=== PATIENT | female | born 1965 | race African-American/Black ===

== ENCOUNTER → 2018-10-06 | Outpatient (CLI) | payer OTHER ==
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
== END | disposition home or self-care (01) ==
LOC: HKI 15:44
PROVIDERS: ATTEND Orthopaedic Surgery Adult Reconstructive Orthopaedic Surgery
DX: M17.0 Bilateral primary osteoarthritis of knee (principal); M21.062 Valgus deformity, not elsewhere classified, left knee; M21.061 Valgus deformity, not elsewhere classified, right knee; M79.604 Pain in right leg; M79.605 Pain in left leg; Z87.828 Personal history of other (healed) physical injury and trauma
CPT/HCPCS: 77073

== ENCOUNTER 2018-11-09 05:28 | Inpatient (IN) | payer OTHER ==
[2018-11-05 19:00] VITALS: BMI 31.9
[2018-11-09] VITALS (31 sets, daily range): BP systolic 82–125; BP diastolic 50–89; PULSE 79–104; RESP 16–28; Ht 175.3 cm; Wt 97.9 kg
[~2018-11-09] VITALS: Ht 175.3 cm; Wt 97.9 kg
[2018-11-09] MEDS ORDERED: DEXAMETHASONE 4 MG/ML 5 ML INJ IV ONE (05:30)
[2018-11-09] MEDS ORDERED: CEFAZOLIN 2 GM/50 ML (PMX) 50 ML IVPB ONE (05:30)
[2018-11-09] MEDS ORDERED: ONDANSETRON 4 MG INJ IV ONE (05:30)
[2018-11-09] MEDS ORDERED: TRANEXAMIC ACID 1GM/100ML(PMX) 100 ML IV ONE (05:30)
[2018-11-09] MEDS ORDERED: ACETAMINOPHEN 1000MG/100ML IV 100 ML IVPB ONE (05:30)
[2018-11-09] MEDS ORDERED: LACTATED RINGER'S 1,000 ML (ENTER RATE) IV ONE (05:30)
[2018-11-09] MEDS ORDERED: LANSOPRAZOLE 30 MG CAP PO ONE (05:30)
[2018-11-09] MEDS ORDERED: GABAPENTIN 300 MG CAP PO ONE (05:30)
[2018-11-09] MEDS ORDERED: TRANEXAMIC ACID 1GM/100ML(PMX) 100 ML IVPB ONE (05:30)
[2018-11-09] MEDS ORDERED: DEXAMETHASONE 10 MG/ML 1 ML INJ IV ONE (05:30)
[2018-11-09] MEDS: CELECOXIB 200 MG CAP PO ONE ×2 (06:50→06:51)
[2018-11-09] MEDS ORDERED: SEVOFLURANE 15 MIN ONE (07:00)
[2018-11-09] MEDS ORDERED: GABA400C14 PO (07:00)
[2018-11-09] MEDS ORDERED: METH750T93 PO (07:01)
[2018-11-09] MEDS ORDERED: MELO15TA30 PO (07:02)
[2018-11-09] MEDS ORDERED: ACET1TAB44 PO (07:02)
--- NOTE | 2018-11-09 07:11 | HPN ---
Date/Time of Note Date/Time of Note DATE: 11/09/18 TIME: 07:11 Interval H&P Admission Note Pt. seen H&P reviewed: No system changes Patient denies fever, chills, shortness of breath, chest pain, nausea/vomiting, constipation, diarrhea, numbness, and tingling. MUSCULOSKELETAL: Right lower extremity Skin intact Sensation intact to light touch in a sural, saphenous, deep peroneal, superficial peroneal, medial and lateral plantar nerve distribution. Motor is intact, patient able to dorsiflex and plantarflex ankle and extend and flex great toe. Dorsalis Pedis pulse +2, Brisk capillary refill. Compartments are soft. Calves non-tender to palpation bilaterally. AMBROSIO FREDERICK MD November 09, 2018 07:11
[2018-11-09] MEDS ORDERED: TRANEXAMIC ACID 1GM/100ML(PMX) 200 ML ONE (07:20)
--- NOTE | 2018-11-09 07:24 | PREAC ---
Date/Time of Note Date/Time of Note DATE: 11/09/18 TIME: 07:23 Anesthesia Eval and Record Evaluation Time Pre-Procedure Interview DATE: 11/09/18 TIME: 07:23 Age 53 Sex female NPO: 8 hrs Preoperative diagnosis Right Knee OA Planned procedure Right Total Knee Arthroplasty Past Medical History Past Medical History: Includes Musculoskeletal: Osteoarthritis Surgery & Anesthesia Issues No known issue Meds Anticoagulation: No Beta Mindi within 24 hr: No Reason Beta Mindi not given: Pt. not on B-Mindi Reported Medications Meloxicam* (Mobic*) 15 Mg Tablet, 15 MG PO DAILY, #30 TAB 11/09/18 Acetaminophen with Codeine (Acetaminophen-Cod #4 Tablet) 1 Each Tablet, 1 EACH PO BID PRN for PAIN, TAB 11/09/18 Methocarbamol* (Robaxin*) 750 Mg Tablet, 750 MG PO BID PRN for MUSCLE SPASMS, TAB 11/09/18 Gabapentin* (Gabapentin*) 400 Mg Capsule, 400 MG PO TID, #90 CAP 11/09/18 Current Medications Lactated Ringer's 1,000 ml @ 125 mls/hr Q8H ONCE IV Last administered on 11/09/18at 06:52; Admin Dose 125 MLS/HR; Start 11/09/18 at 05:30; Stop 11/09/18 at 13:29 Ropivacaine/ Clonidine HCl/ Epinephrine/ Ketorolac Tromethamine/ Sodium Chloride INTRA-OP INJ ; Start 11/09/18 at 05:30; Stop 11/09/18 at 16:00 Meds reviewed: Yes Allergies Coded Allergies: celecoxib (Verified Allergy, Unknown, ITCHY, 11/09/18) Allergies Reviewed: Yes Labs/Studies Labs Reviewed: Reviewed by anesthesiologist test: Negative Studies: ECG (n/a), CXR (n/a) Pre-procedure Exam Last vitals Vital Signs Date Temp Pulse Resp B/P (MAP) Pulse Ox O2 O2 Flow FiO2 Time Delivery Rate 11/09/18 98.6 07:00 11/09/18 85 18 110/66 96 Room Air 06:20 (81) Airway: Adequate mouth opening, Adequate thyromental dist Mallampati: Mallampati II Teeth: Normal Lung: Normal Heart: Normal ASA Physical Status ASA physical status: 2 Emergency: None Planned Anesthetic General/MAC: ETT, LMA Neuraxial: Spinal Nerve block: Femoral (right) Planned Pain Management Sub-arachniod narcotics, Single shot nerve block, Parenteral pain med Pre-operative Attestations Prior to commencing anesthesia and surgery, the patient was re-evaluated, there was verification of: *The patient's identity *The results of appropriate recent lab work and preoperative vital signs *The above evaluation not changing prior to induction *Anesthetic plan, risk benefits, alternative and complications discussed with patient/family; questions answered; patient/family understands, accepts and wishes to proceed. CIARA SO MD November 09, 2018 07:24
[2018-11-09] MEDS ORDERED: PROPOFOL 20 ML ONE (07:28)
[2018-11-09] MEDS ORDERED: morphine SULFATE/PF (10 MG/10 ML) INJ ONE (07:28)
[2018-11-09] MEDS ORDERED: MIDAZOLAM 1 MG/ML 2 ML INJ ONE (07:28)
[2018-11-09] MEDS ORDERED: DEXAMETHASONE 4 MG/ML 5 ML INJ ONE (08:02)
[2018-11-09] MEDS ORDERED: PHENYLephrine (100 MCG/ML) 10ML SYG ONE (08:02)
[2018-11-09] MEDS ORDERED: KETOROLAC 30 MG INJ ONE (08:02)
[2018-11-09] MEDS ORDERED: ONDANSETRON 4 MG INJ ONE (08:02)
[2018-11-09] MEDS ORDERED: HETASTARCH 6% NACL 500 ML ONE (08:02)
[2018-11-09] MEDS ORDERED: METOCLOPRAMIDE 10 MG INJ ONE (08:02)
[2018-11-09] MEDS ORDERED: ROPIVACAINE 0.5 % 30 ML VIAL ONE (09:35)
[2018-11-09] MEDS ORDERED: HYDROmorphONE 1 MG/5 ML IV SYRINGE IV PRN ×2 (10:30)
[2018-11-09] MEDS ORDERED: ONDANSETRON 4 MG INJ IV PRN (10:30)
[2018-11-09] MEDS ORDERED: ALBUMIN HUMAN 5% 250 ML IV PRN (10:30)
[2018-11-09] MEDS ORDERED: NALOXONE (0.4 MG/ML) INJ IV PRN ×2 (10:30→12:00)
[2018-11-09] MEDS ORDERED: HYDROmorphONE 0.5 MG/0.5 ML SYG IV PRN ×2 (10:30)
[2018-11-09] MEDS ORDERED: LABETALOL HCL 20MG INJ IV PRN (10:30)
[2018-11-09] MEDS ORDERED: MEPERIDINE 25 MG INJ IV PRN (10:30)
[2018-11-09] MEDS ORDERED: morphine 2 MG INJ IV PRN ×2 (10:30)
[2018-11-09] MEDS ORDERED: DIPHENHYDRAMINE 50 MG INJ IV PRN ×3 (10:30→12:00)
[2018-11-09] MEDS ORDERED: OXYCODONE/ACETAMINOPHEN (5/325) TAB PO PRN ×2 (10:30)
[2018-11-09] MEDS ORDERED: NALBUPHINE HCL (10 MG/1 ML) INJ IV PRN (10:30)
[2018-11-09] MEDS ORDERED: HYDROCODONE/APAP (5/325) TAB PO PRN (10:30)
[2018-11-09] MEDS ORDERED: EPHEDrine 25 MG/5 ML SYG IV PRN (10:30)
[2018-11-09] MEDS ORDERED: FENTAnyl 50 MCG/ML VIAL IV PRN ×2 (10:30)
[2018-11-09] MEDS ORDERED: ACETAMINOPHEN 500 MG TAB PO PRN (10:30)
[2018-11-09] MEDS ORDERED: CEFAZOLIN 1 GM INJ ONE (10:35)
--- NOTE | 2018-11-09 11:52 | PAC ---
Date/Time of Note Date/Time of Note DATE: 11/09/18 TIME: 11:51 Post-Anesthesia Notes Post-Anesthesia Note Last documented vital signs Vital Signs Date Temp Pulse Resp B/P (MAP) Pulse Ox O2 O2 Flow FiO2 Time Delivery Rate 11/09/18 98.6 07:00 11/09/18 98.8 85 18 110/66 96 Room Air 11:50 (81) Activity: WNL Respiratory function: WNL Cardiovascular function: WNL Mental status: Baseline Pain reasonably controlled: Yes Hydration appropriate: Yes Nausea/Vomiting absent: Yes CIARA SO MD November 09, 2018 11:52
[2018-11-09] MEDS ORDERED: MAGNESIUM HYDROXIDE 30ML CUP PO PRN (12:00)
[2018-11-09] MEDS ORDERED: NACL 0.9% 3 ML SYG IV SCH (12:00)
[2018-11-09] MEDS ORDERED: DOCUSATE SODIUM 100 MG CAP PO ONE (12:00)
[2018-11-09] MEDS ORDERED: NA PHOSPHATE/BIPHOS 133 ML ENEMA PR PRN (12:00)
[2018-11-09] MEDS ORDERED: oxyCODONE 5 MG TAB PO PRN ×2 (12:00)
[2018-11-09] MEDS ORDERED: BETHANECHOL 25 MG TAB PO PRN (12:00)
[2018-11-09] MEDS ORDERED: SENNA/DOCUSATE NA (8.6MG/50MG) TAB PO PRN (12:00)
[2018-11-09] MEDS ORDERED: BISACODYL 10 MG SUPP PR PRN (12:00)
[2018-11-09] MEDS: LACTATED RINGER'S 1,000 ML IV SCH ×2 (12:58→18:56)
[2018-11-09] MEDS: CEFAZOLIN 2 GM/50 ML (PMX) 50 ML IVPB SCH ×2 (13:13→23:13)
[2018-11-09] MEDS: ACETAMINOPHEN 500 MG TAB PO SCH ×2 (14:00→22:00)
--- NOTE | 2018-11-09 16:07 | OPR ---
Date/Time of Note Date/Time of Note DATE: 11/09/18 TIME: 15:48 Operative Report Procedure Date: November 09, 2018 Preoperative Diagnosis Severe end-stage osteoarthritis of the right knee Postoperative Diagnosis Same as preop Operation/Procedure Performed Right total knee arthroplasty Use of intraoperative navigation Surgeon see signature line Rn Document Improvement Specialist Louie John Anesthesia Type: general, spinal Tourniquet Time: 120 minutes Estimated Blood Loss: 50 - 100 ml's Transfusion none Specimen Bone Grafts/Implants Depuy Sigma Femur: size 4 PS Tibia: Size 3 mobile bearing tibia Tibial sleeve: 37 mm partially porous-coated tibial stem: 16 x 7 5 mm Poly insert: Mobile-bearing size 4 PS, 17.5 mm thickness Patella: 35 mm Tubes/Drains None Complications none Pt Condition Post Procedure: stable Disposition: PACU Procedure Description PREOP DIAGNOSIS: Right knee osteoarthritis with instability POSTOP DIAGNOSIS: Same. SURGICAL PROCEDURE: Right total knee arthroplasty. Use of intraoperative navigation CPT CODE: 28056. INDICATIONS AND CONSENT: The patient is a 53 year-old woman, with an orthopaedic history consistent with progressively worsening knee pain. They have maximized nonoperative measures, which have included activity modification, medicines, intra-articular injections. On physical exam, they have varus alignment, no previous open surgical scars. They have ROM 2080, gross ligamentous instability. No significant venous stasis or edema. Distally neurovascular intact. On preoperative imaging she had end-stage osteoarthritis with complete loss of joint space in the medial compartment. There is also significant and severe posterior medial tibial plateau where and erosions. There was significant posterior tibial slope. They were offered a knee replacement. A lengthy discussion ensued, where the patient was told that if and when the symptoms are intolerable, elective total knee replacement should be considered. The operative procedure was explained using diagrams and or three-dimensional models. The rehabilitation, the potential risks, benefits and alternatives were discussed at length. Specific risks discussed included but were not limited to excessive blood loss and the need for transfusion and therefore the risk of transmissible disease or transfusion reaction, deep infection and the potential need for repetitive debridements, implant removal, long-term antibiotic therapy, possibly requiring deep venous access, extensor mechanism complications, including subluxation or dislocation, disruption of the quadriceps or patellar tendon, fracture of the patella or avulsion of the tibial tuberosity, femoral, tibial or fibular fracture and the need for further surgery for fixation, neurovascular injury with temporary or permanent numbness, tingling, weakness or paralysis, arterial injury requiring surgery including possible amputation, deep venous thrombosis, pulmonary embolism and , persistent pain, weakness, or limp, late aseptic loosening and the need for revision, polyethylene wear- induced osteolysis and related problems, post-operative stiffness requiring closed manipulation, and finally, a wide variety of unanticipated medical problems. The opportunity to ask questions and address any concerns was provided. The patient elected to proceed with TKA. FINDINGS: Complete loss of cartilage in all 3 compartments. The lateral structures were ligamentously lax. Medial structures were very tight. Numerous large osteophytes throughout the joint including posterior capsule. Relatively good bone. SURGERY IN DETAIL: Patient was taken into the Operating Room, placed supine on the operating table. Preoperatively, they were given weight-based dosing of Ancef and if MRSA positive vancomycin was given in addition. Tourniquet was placed to the right proximal thigh. Regional anesthesia was administered by Anesthesia Department. Right lower extremity was prepped and draped in sterile fashion. Surgical pause was performed, correctly identifying the patient's name, medical record number, diagnoses, surgical procedure, and laterality of procedure. The leg was elevated, exsanguinated with an Esmarch, tourniquet was inflated to 250 mmHg, remained inflated for 80 then 40 minutes, after which it was deflated. An anterior midline incision approximately 15-20 cm in length was made, centered over the patella ending just medial to the tibial tubercle. Skin and subcutaneous tissue sharply dissected down the Marilu's fascia superiorly, which was incised in line with skin incision. The quadriceps tendon, medial patellar retinaculum, patellar tendon were visualized. A medial parapatellar arthrotomy was performed. The proximal medial tibia was subperiosteally exposed for a distance of 4 cm from joint line. The deep infrapatellar bursa was incised. The patella was everted and the knee was flexed, while protecting the insertion of patellar tendon. A 3/8-inch curved osteotome was used to enter the semimembranosus bursa at the level of the joint line medially. Medial meniscus was excised at the meniscal- synovial junction. The anterior cruciate ligament was excised. The posterior cruciate ligament was excised with electrocautery from the intercondylar region and a posterior retractor was placed, subluxating the tibia anterolateral to the femur. A hernia was made anterolateral to the lateral meniscus and a right- angle retractor was placed over the anterolateral tibia. A lateral meniscectomy was performed. The inferior lateral geniculate artery was coagulated. The tibia was reduced under the femur. An intramedullary pin was placed for the OrthAlign device. The OrthAlign navigation unit and sensor were calibrated at the back table. The OrthAlign femoral cutting jig was then placed over the central pin, and secured with a m edial and lateral pin. The OrthAlign navigation unit and OrthAlign sensor were then attached to the jig. The leg was maneuvered for appropriate capture and calibration. After this was performed, the navigation unit was adjusted for a 0 varus/valgus (neutral mechanical axis) and 2.0-2.5 degree posterior flexion cut. The cutting jig was locked in place. The navigation and sensor unit were then removed. The distal femoral cut was set at 11 mm for the osteotomy . This was then secured with two pins. A distal femoral osteotomy was performed. The OrthAlign femoral jig was then removed. A posterior retractor was placed and an anterolateral retractor was placed on the tibia, subluxating the tibia anterior to the femur. The OrthAlign tibial cutting jig was then applied to the tibia preliminarily with the strap. This was secured with two pins centered over the medial 1/3 of the tibial tubercle. The offset was established proximally at the ACL footprint. This was then matched distally. There was severe erosion and bone loss over the posterior medial tibial plateau. The severity of the tibial slope and bone loss was suspicious for previous posterior medial tibial plateau fracture that was now healed. Registration was then performed, registering the lateral malleolus and the medial malleolus. After this was performed, the malleolar probe was then utilized to help set the appropriate varus/valgus as well as tibial slope. This was then locked into position. The navigation guide and sensor were then r emoved. The slotted tibial cutting jig was then applied and secured with two pins. A proximal tibia osteotomy was performed. The tibia was then brought to full extension and a 8 mm spacer block was inserted, the gap was very imbalanced and was too tight medially and very loose laterally. Further releases were done medially along the posterior medial tibia as well as the posterior capsule at 12.5 mm poly-was placed and it was still tight medially and loose laterally. The knee was flexed again and the tibial alignment guide was then removed. With the knee flexed to 90 degrees a femoral sizing jig was placed on the distal femur and secured, the femur sized to a size 4. Due to preoperative varus deformity, this was then set on 3 the degrees of empiric external rotation, using the posterior condyles. Flexion gap was extremely tight therefore the block was raised 1 pinhole to open up the flexion gap. This was parallel to the epicondylar axis. A size 4 4-in-1 femoral cutting block was then secured to the femur with two lock pins and an anterior, posterior condylar cut were performed, followed by an anterior chamfer and a posterior chamfer cut. Cutting block was removed. A 12.5 mm spacer was then inserted at 90 degrees of flexion and this was symmetric with the extension gap. An intercondylar box osteotomy was performed using the box cutting guide. At this time was decided to prepare for a mobile-bearing tibia in order to place sleeve and and stem and possible conversion to a TC3. The tibia was prepped with a intramedullary drill followed by reamers. Narrow reamers were placed down to obtain intramedullary alignment. The proximal tibia using this intramedullary alignment was then milled and broached with sleeves up to a size 37 mm sleeve at this size there is good fixation. Continued to ream up in size for 75 mm long stem. Appropriate size stem was 16 x 75 mm. The trial sleeve was then placed with the size 3 trial baseplate. The punch was then performed. The knee was then trialed. Patient had full range of motion however was unstable in flexion and had on equal extension gap in the coronal plane. Therefore further medial release was done. A trial 17.5 mm poly-was placed. There is good stability in both extension flexion with equal and rectangular gaps. Patient was able to obtain full extension and flexion to 130 degrees. The patella was everted and the osteochondral junction was exposed. The patella measured 24 mm in thickness. A patellar osteotomy performed leaving 14.5 mm remnant patella. Three lug holes were drilled for the 35 mm diameter patellar button. The knee then underwent range of motion, soft tissue tension and patellar tracking, everything was symmetric balanced. The patella tracked centrally. Posterior medial tibia was then drilled to increase cement interdigitation. Exposed bony surfaces were thoroughly irrigated and dried. Periarticular injection administered. Cement with antibiotics was mixed at the back table. At the appropriate time and consistency cement was placed onto the tibial plateau careful to not allow cement to enter the intramedullary canal secondary to the planned ports fixation of the sleeve. Cement was finger pressurized. Cement was placed on the backside of the tibial component The tibial component with a size 37 mm sleeve and stem 16 x 75 mm was placed by hand into the keel and was then impacted and extruded cement removed. Cement was applied to exposed bone of the femur, as well as the posterior condylar portion prostheses, and the femoral component was inserted, extruded cement was then removed. The knee was brought to full extension. Cement was applied to the patella, as well as the patellar button, which was clamped into position. Extruded cement was removed. After the cement completely dried, the knee was flexed, the trial polyethylene was removed. Scored cement was removed. A tourniquet was deflated. Hemostasis was obtained. Pulse lavage was used to irrigate and remove any loose debris from posterior knee. A formal size 4, 17.5 mm polyethylene was inserted, confirmed seated and locked. The knee was reduced, hemostasis obtained. Copious amounts of irrigation was used with pulse lavage to remove and loose debris. The arthrotomy was closed with 1 PDS in a [id number], interrupted fashion, subcutaneous tissues irrigated, closed with 2-0 Vicryl in an inverted, interrupted fashion. The skin was closed with verenice. A sterile dressing was applied. Sponge, needle and instrument counts were correct at the end of the case. DISPOSITION: Patient transferred to PACU in stable condition. The patient will be weight bearing as tolerated on the operative extremity. PT will begin POD #0 if available. Postoperative AP and lateral of the operative knee will be ordered in PACU. Bilateral knee high SCDs will be worn while admitted. ASA 81mg BID will be given for DVT prophylaxis for 6 weeks. Pain will be controlled with me dication. The patient will follow up in clinic in approximately 2 weeks. ESTIMATED BLOOD LOSS: 50 mL. CULTURES: None. PATHOLOGY: Bone. IMPLANTS: redealize Femur: size 4 PS Tibia: Size 3 mobile bearing tibia Tibial sleeve: 37 mm partially porous-coated tibial stem: 16 x 7 5 mm Poly insert: Mobile-bearing size 4 PS, 17.5 mm thickness Patella: 35 mm YOLY,AMBROSIO MD November 09, 2018 16:04
--- NOTE | 2018-11-09 17:02 | QN ---
Documentation Comment consult note dictated. Thanks for the Consult. We will follow with you. ERIN ESTRADA November 09, 2018 17:02
[2018-11-09] MEDS: ONDANSETRON 4 MG INJ IV PRN ×2 (18:53→20:46)
[2018-11-09] MEDS: GABAPENTIN 300 MG CAP PO SCH (20:46)
[2018-11-09] MEDS: DOCUSATE SODIUM 100 MG CAP PO SCH (20:46)
--- NOTE | 2018-11-09 20:59 | CONS ---
DATE OF ADMISSION: 11/09/2018 DATE OF CONSULTATION: 11/09/2018 INDICATION FOR CONSULTATION: Medical management. HISTORY OF PRESENTING COMPLAINT: This is a 53-year-old -[place] female with the history of s evere end-stage osteoarthritis of the right knee that was admitted for an elective right total knee a rthroplasty. The procedure supposedly went well and the patient is currently being monitored in the medical/surgical floor and was unable to participate with physical therapy earlier due to some dizzin ess, but otherwise is doing well. She has minimal pain at the operative site, but is comfortable jus t sitting down, discussing with her family members at the bedside. She was in her normal state of he alth prior to the surgery. She is able to give me a detailed surgical and medical history. She tell s me she used to be on antihypertensives a long time ago, but for about a year now, she has not taken oral antihypertensives and has no need that. She has no other medical history other than the severe osteoarthritis of her knee. PAST MEDICAL HISTORY: Essentially summarized above. REVIEW OF SYSTEMS: Essentially a 12-point review of system was done and was negative. PAST SURGICAL HISTORY: She has had surgery to her abdomen. She has a total hysterectomy as well as surgery to her right upper extremity. ALLERGIES: SHE REPORTS ALLERGY TO CELECOXIB. SOCIAL HISTORY: She smokes marijuana daily, drinks a cup of coffee daily but denies alcohol or illic it drug use. FAMILY HISTORY: Noncontributory. HOME MEDICATIONS: Reviewed and reconciled. PHYSICAL EXAMINATION: VITAL SIGNS: Temperature 97.9, pulse 89, respirations 18, blood pressure 100/57, saturations 97% on oxygen via nasal cannula at 2 L a minute. GENERAL: She is alert. She is oriented, no distress at this time. HEENT: Head is normocephalic without evidence of trauma. Pupils equal, round, and reactive. Mucous membranes are moist. Posterior pharynx is clear of erythema and exudate. NECK: Supple and nontender. CHEST: Clear to auscultation. CARDIOVASCULAR: S1 and S2 without added sounds or murmurs. ABDOMEN: Soft, nontender, nondistended. EXTREMITIES: The patient has a bandage and splinting all the way from above her right knee all the w ay to her foot, but is able to wiggle her toes. Left lower extremity is unremarkable. SKIN: Otherwise, devoid of rash or jaundice. PSYCHIATRIC: She was calm, cooperative with exam. LABORATORY VALUES: No new labs and imaging to report. ASSESSMENT: A 53-year-old female for whom we were consulted for medical management after she has und ergone a right total knee arthroplasty for severe degenerative right osteoarthritis. 1. Prior history of hypertension, the patient -- blood pressure control of antihypertensives. Iram nue to monitor. 2. Remote use of substance abuse. The patient does smoke marijuana daily. At that time, she has be en encouraged to try not to smoke anything. She is encouraged to partake of recreational marijuana i n moderation ____ pain control and DVT prophylaxis by ortho. Further interventions will depend on he r clinical course. We will order labs for GI review. Thank you for the consult. We will follow with you. Dictated By: ERIN ESTRADA MD BA/NTS Conf#: [id number] DID#: [id number]
[2018-11-10 00:01] VITALS: BP 120/71; PULSE 88; RESP 18
[2018-11-10] MEDS: HYDROmorphONE 1 MG/ML SYG IV PRN ×7 (00:08→20:40)
[2018-11-10 03:27] VITALS: BP 109/62; PULSE 84; RESP 18
[2018-11-10] MEDS: ONDANSETRON 4 MG INJ IV PRN ×2 (03:45→09:42)
[2018-11-10] MEDS: ACETAMINOPHEN 500 MG TAB PO SCH ×3 (05:27→21:53)
[2018-11-10] MEDS: CEFAZOLIN 2 GM/50 ML (PMX) 50 ML IVPB SCH (05:28)
[2018-11-10] MEDS ORDERED: DEXAMETHASONE 10 MG/ML 1 ML INJ IV ONE (07:00)
[2018-11-10 07:53] VITALS: BP 185/85; PULSE 95; RESP 18
[2018-11-10] MEDS: ASPIRIN (EC) 81 MG TAB PO SCH ×2 (08:17→20:39)
[2018-11-10 08:20] VITALS: BP 113/75; PULSE 85
[2018-11-10] MEDS: DOCUSATE SODIUM 100 MG CAP PO SCH ×4 (08:20→21:00)
[2018-11-10] MEDS: METOCLOPRAMIDE 10 MG INJ IV SCH ×3 (10:12→20:39)
[2018-11-10] MEDS ORDERED: ONDANSETRON 4 MG INJ IV PRN (12:00)
[2018-11-10] MEDS: LACTATED RINGER'S 1,000 ML IV SCH (12:06)
[2018-11-10 14:27] VITALS: BP 122/86; PULSE 81; RESP 18
[2018-11-10 19:18] VITALS: BP 119/72; PULSE 96; RESP 20
[2018-11-10] MEDS: GABAPENTIN 300 MG CAP PO SCH (20:39)
--- NOTE | 2018-11-10 21:13 | PN ---
Date/Time of Note Date/Time of Note DATE: 11/10/18 TIME: 21:08 Assessment/Plan Lines/Catheters IV Catheter Type (from Nrsg): Saline Lock Hankins in Place (from Nrsg): Yes Assessment/Plan Chief Complaint/Hosp Course POD#1 s/p primary right TKA -Post op H&H stable -PT/OT -Joints pain control protocol. will add Toradol. -DVT prophylaxis: SCD's, ASA 81 mg twice daily x6 weeks -Weight bearing status: as tolerated -Post-op XR ordered -Abx: 24h vanc/ancef -Diet: ADAT -Hankins: DC'd today -Discharge planning consult Planned Discharge Date: 11/11/2018 Discharge to home with home health Subjective 24 Hr Interval Summary Patient doing well No acute events overnight Pain is not well controlled. Patient continues to have nausea and vomiting Exam/Review of Systems Vital Signs Vitals Vital Signs Date Temp Pulse Resp B/P (MAP) Pulse Ox O2 O2 Flow FiO2 Time Delivery Rate 11/10/18 98.4 96 20 119/72 100 Room Air 19:18 (88) 11/09/18 2.0 17:00 Intake and Output 11/09/18 11/09/18 11/10/18 1515:00 23:00 07:00 IntakeIntake Total 2200 ml 1480 ml 500 ml OutputOutput Total 550 ml 700 ml 900 ml BalanceBalance 1650 ml 780 ml -400 ml Exam Free Text/Dictation Right lower extremity: Dressing: clean, dry, and intact, no erythema Sensation intact to light touch in a sural, saphenous, deep peroneal, superficial peroneal, medial and lateral plantar nerve distribution. Motor is intact, patient able to dorsiflex and plantarflex ankle and extend and flex great toe. Dorsalis Pedis pulse +2, Brisk capillary refill. Compartments are soft. Calves non-tender to palpation bilaterally. Results Result Diagram: 11/10/18 0429 11/10/18 0429 AMBROSIO FREDERICK MD November 10, 2018 21:13
[2018-11-10] MEDS ORDERED: KETOROLAC 30 MG INJ IV ONE (21:26)
[2018-11-10] MEDS ORDERED: KETOROLAC 15 MG INJ IV PRN (21:30)
[2018-11-11 01:39] VITALS: BP 139/79; PULSE 95; RESP 20
[2018-11-11] MEDS: METOCLOPRAMIDE 10 MG INJ IV SCH ×4 (02:24→18:38)
[2018-11-11] MEDS: LACTATED RINGER'S 1,000 ML IV SCH (02:28)
--- NOTE | 2018-11-11 06:28 | PN ---
Date/Time of Note Date/Time of Note DATE: 11/11/18 TIME: 06:27 Assessment/Plan Lines/Catheters IV Catheter Type (from Nrsg): Saline Lock [place] in Place (from Nrsg): Yes Assessment/Plan Chief Complaint/Hosp Course POD#2 s/p primary right TKA . Patient continues to be nauseated however it is decreased from yesterday. Her pain is better controlled today. -Post op H&H stable -PT/OT -Joints pain control protocol. will add Toradol. -DVT prophylaxis: SCD's, ASA 81 mg twice daily x6 weeks -Weight bearing status: as tolerated -Post-op XR ordered -Abx: 24h vanc/ancef -Diet: ADAT -Hankins: DC'd today -Discharge planning consult Planned Discharge Date: 11/11/2018 Discharge to home with home health Subjective 24 Hr Interval Summary Patient doing well No acute events overnight Pain is moderately controlled. Her nausea is slightly improved but still present. Exam/Review of Systems Vital Signs Vitals Vital Signs Date Temp Pulse Resp B/P (MAP) Pulse Ox O2 O2 Flow FiO2 Time Delivery Rate 11/11/18 99.8 95 20 139/79 95 Room Air 01:39 (99) 11/09/18 2.0 17:00 Intake and Output 11/10/18 11/10/18 11/11/18 1515:00 23:00 07:00 IntakeIntake Total 1300 ml 120 ml OutputOutput Total 400 ml 600 ml BalanceBalance 1300 ml -280 ml -600 ml Exam Free Text/Dictation Right lower extremity: Dressing: clean, dry, and intact, no erythema Sensation intact to light touch in a sural, saphenous, deep peroneal, superficial peroneal, medial and lateral plantar nerve distribution. Motor is intact, patient able to dorsiflex and plantarflex ankle and extend and flex great toe. Dorsalis Pedis pulse +2, Brisk capillary refill. Compartments are soft. Calves non-tender to palpation bilaterally. Results Result Diagram: 11/11/18 0448 11/11/18 0448 AMBROSIO FREDERICK MD November 11, 2018 06:28
[2018-11-11] MEDS: ACETAMINOPHEN 500 MG TAB PO SCH ×3 (06:55→21:54)
[2018-11-11] MEDS: PANTOPRAZOLE (EC) 40 MG TAB PO SCH (06:55)
[2018-11-11 08:26] VITALS: BP 116/58; PULSE 90; RESP 18
[2018-11-11 08:38] VITALS: BP 139/83; PULSE 112; RESP 18
[2018-11-11] MEDS: ASPIRIN (EC) 81 MG TAB PO SCH ×2 (08:48→20:40)
[2018-11-11] MEDS: DOCUSATE SODIUM 100 MG CAP PO SCH ×4 (08:48→21:00)
[2018-11-11] MEDS: oxyCODONE 5 MG TAB PO PRN ×2 (09:26→15:35)
[2018-11-11] MEDS ORDERED: CEFTRIAXONE 1 GM/50 ML (PMX) 50 ML IVPB SCH (12:09)
[2018-11-11] MEDS: DEXTROSE 5%-0.45% NACL 1,000 ML IV SCH (12:21)
[2018-11-11 15:46] VITALS: BP 113/77; PULSE 85; RESP 18
--- NOTE | 2018-11-11 16:18 | EN ---
Date/Time of Note Date/Time of Note DATE: 11/10/18 Event Note Medicine Medicine Event Note Subjective: patient is having a lot of nausea and vomiting, not responding to Zofran Vital Signs Date Temp Pulse Resp B/P (MAP) Pulse Ox O2 O2 Flow FiO2 Time Delivery Rate 11/10/18 98.4 96 20 119/72 100 Room Air 19:18 (88) 11/09/18 2.0 17:00 Intake and Output 11/09/18 11/09/18 11/10/18 1515:00 23:00 07:00 IntakeIntake Total 2200 ml 1480 ml 500 ml OutputOutput Total 550 ml 700 ml 900 ml BalanceBalance 1650 ml 780 ml -400 ml Exam GENERAL: anxious HEENT: Head is normocephalic. Pupils are equal and reactive. Mucous membranes are moist. NECK: Supple. CHEST: With diminished breath sounds without crackles or wheezes. CARDIOVASCULAR: s1s2 no murmurs ABDOMEN: Soft, nontender. There is no suprapubic tenderness and normoactive bowel sounds. EXTREMITIES: With splint as described earlier. No other new concerning signs or erythema. Results Result Diagram: 11/10/189 11/10/189 A 53-year-old female for whom we were consulted for medical management after she has undergone a right total knee arthroplasty for severe degenerative right osteoarthritis. 1. Prior history of hypertension, the patient remains with good BP control off antihypertensives 2. Remote use of substance abuse. The patient does smoke marijuana daily. At that time, she has been encouraged to try not to smoke anything. She is encouraged to partake of recreational marijuana in moderation 3. Nausea and vomiting, med side effect? add scheduled reglan 4. Leucocytosis: reactive? - pain control and DVT prophylaxis by ortho. Further interventions will depend on her clinical course. ERIN ESTRADA November 11, 2018 16:18
--- NOTE | 2018-11-11 16:43 | PN ---
DATE: 11/11/2018 SUBJECTIVE: The patient's nausea is better, but she is still stating she cannot tolerate much. She is also still with significant dizziness limiting ambulation with physical therapy. PHYSICAL EXAMINATION: VITAL SIGNS: Temperature today is 99.3 maximum, but at this time is improved to 98.8, pulse rate is 112, respirations 18, blood pressure 139/83, saturations 95% on room air. GENERAL: The patient remains acutely ill looking, but otherwise in no distress. HEENT: Head is normocephalic. Pupils are equal and reactive. Mucous membranes are moist. NECK: Supple. CHEST: With diminished breath sounds without crackles or wheezes. CARDIOVASCULAR: Mildly tachycardic. No murmurs. ABDOMEN: Soft, nontender. There is no suprapubic tenderness and normoactive bowel sounds. EXTREMITIES: With splint as described earlier. No other new concerning signs or erythema. LABORATORY VALUES: Today, she is hypokalemic with a potassium of 3.3; otherwise basic metabolic prof ile is normal. Her white count has come down to 15,000 from 21,000, hemoglobin is 9.7. So far, urin e culture has been negative. IMPRESSION: This is a 53-year-old female who was brought in for elective right total knee arthroplas ty for severe degenerative osteoarthritis for whom we were consulted for medical management and curre ntly managed as follows: 1. Postoperative nausea, vomiting, dizziness: This is likely secondary to gastroparesis versus medi cation side effect, but symptoms have not improved. We will begin empiric antibiotics in view for #2 . Continue to monitor cultures. Also continue scheduled Reglan. The patient may also be withdrawin g because she does use marijuana daily. Continue gentle IV hydration. Continue antiemetics and cont inue inpatient monitoring. 2. Systemic inflammatory response syndrome with leukocytosis, tachycardia and mild temperature eleva tion. Encourage incentive spirometry use, but also get a chest x-ray and blood cultures as well. Be gin empiric antibiotics for urinary tract infection and go from there. 3. Hypokalemia. We will replete. 4. Remote history of substance use, current history of daily marijuana use. The patient may likely be withdrawing. Again, continue all supportive care. Plan of care has been discussed with her in detail. Questions have been answered. Consider avoiding opiate therapy at this time and seeing how she does with minimal opiate therapy for pain control. Dictated By: ERIN ESTRADA MD BA/NTS Conf#: [id number] DID#: [id number] CC: AMBROSIO FREDERICK MD;*EndCC*
[2018-11-11 20:11] VITALS: BP 123/77; PULSE 80; RESP 20
[2018-11-11] MEDS: traMADol-APAP 37.5-325 1 TAB PO PRN (20:40)
[2018-11-11] MEDS: GABAPENTIN 300 MG CAP PO SCH (20:40)
[2018-11-12] MEDS: METOCLOPRAMIDE 10 MG INJ IV SCH ×3 (00:26→12:47)
[2018-11-12] MEDS: DEXTROSE 5%-0.45% NACL 1,000 ML IV SCH (01:20)
[2018-11-12] MEDS: traMADol-APAP 37.5-325 1 TAB PO PRN ×2 (02:15→08:22)
[2018-11-12] MEDS: ACETAMINOPHEN 500 MG TAB PO SCH (06:23)
[2018-11-12] MEDS: PANTOPRAZOLE (EC) 40 MG TAB PO SCH (06:23)
[2018-11-12 07:59] VITALS: BP 127/83; PULSE 86; RESP 18
[2018-11-12] MEDS: ASPIRIN (EC) 81 MG TAB PO SCH (08:22)
[2018-11-12] MEDS: DOCUSATE SODIUM 100 MG CAP PO SCH ×2 (08:24)
[2018-11-12] MEDS ORDERED: POTASSIUM CHLORIDE (SR) 20 MEQ TAB PO STA (11:37)
--- NOTE | 2018-11-12 11:47 | CONS ---
Assessment/Plan Assessment/Plan Hospital Course (Demo Recall) SUBJECTIVE: Patient is for discharge today. She did not have any fevers, chills, cough, shortness of breath or other discomfort. OBJECTIVE: Vital signs-see below PHYSICAL EXAM: Constitutional: Adequately built,not in acute distress. HEENT: Head atraumatic and normocephalic. Eyes: Extraocular muscles intact. Anicteric sclerae. Pupils equal bilaterally, reactive to light. NECK: Supple without lymph node. CHEST: Clear and good breath sounds equally. No wheezing. No rhonchi. HEART: S1, S2. Regular rate and rhythm. ABDOMEN: Soft/non tender with no rebound tenderness. Bowel sounds were present. EXTREMITIES: RLE dressing c/d/i. no cyanosis, clubbing or edema. NEUROLOGIC: Alert and oriented x3. No focal deficit. No sensory deficit. PSYCHOSOCIAL: No signs of depression. INTEGUMENTARY: No open wounds. ASSESSMENT AND PLAN:A 53-year-old female for whom we were consulted for medical management after she has undergone a right total knee arthroplasty for severe degenerative right osteoarthritis. Right knee osteoarthritis, status post right total knee arthroplasty 11/09/2018 -dvt ppx/pain control -PT/rehab SIRS likely 2/2 Postoperative atelectasis -Improved -no fevers/resp symptoms ~24 hrsto clinically suggest infectious process -Continue incentive spirometry Chronic Anemia stable HH Cannabinoid use -Cessation advised. Disposition: patient remains medically stable. Agree with DC planning with outpatient orthopedics follow-up. I have also instructed patient to notify [facility] physician or come back to the emergency room if she experiences fever, cough, breathing difficulties or other symptoms. Also have instructed patient to continue using incentive spirometry after discharge. Patient was seen in collaboration with Dr. Pollock. Consultation Date/Type/Reason Admit Date/Time November 09, 2018 at 05:28 Initial Consult Date Reason for Consultation medical management Requesting Provider: AMBROSIO FREDERICK MD Date/Time of Note DATE: 11/12/18 TIME: 11:42 Exam/Review of Systems Exam Vitals Vital Signs Date Temp Pulse Resp B/P (MAP) Pulse Ox O2 O2 Flow FiO2 Time Delivery Rate 11/12/18 98.5 86 18 127/83 97 Room Air 07:59 (98) 11/09/18 2.0 17:00 Intake and Output 511/11/18 11/12/18 1515:00 23:00 07:00 IntakeIntake Total 450 ml 1550 ml 2000 ml BalanceBalance 450 ml 1550 ml 2000 ml Results Result Diagram: 11/12/18 0433 11/12/18 0433 Results 24hrs Laboratory Tests Test 11/11/18 12:15 11/12/18 04:33 Urine Color YELLOW Urine Clarity SLIGHTLY CLOUDY A Urine pH 7.0 Urine Specific [place] 1.016 Urine Ketones NEGATIVE Urine Nitrite NEGATIVE Urine Bilirubin NEGATIVE Urine Urobilinogen 2+ H Urine Leukocyte Esterase NEGATIVE Urine Microscopic RBC 3 Urine Microscopic WBC 2 Urine Squamous Epithelial Cells FEW Urine Hemoglobin 2+ H Urine Glucose NEGATIVE Urine Total Protein NEGATIVE White Blood Count 16.9 H Red Blood Count 3.16 L Hemoglobin 9.4 L Hematocrit 28.9 L Mean Corpuscular Volume 91.5 Mean Corpuscular Hemoglobin 29.7 Mean Corpuscular Hemoglobin Concent 32.5 Red Cell Distribution Width 14.0 Platelet Count 257 Mean Platelet Volume 10.0 Immature Granulocytes % 1.100 H Neutrophils % 62.4 Lymphocytes % 18.5 Monocytes % 16.2 H Eosinophils % 1.3 Basophils % 0.5 Nucleated Red Blood Cells % 0.0 Immature Granulocytes # 0.180 H Neutrophils # 10.6 H Lymphocytes # 3.1 H Monocytes # 2.7 H Eosinophils # 0.2 Basophils # 0.1 Nucleated Red Blood Cells # 0.0 Sodium Level 137 Potassium Level 3.4 L Chloride Level 105 Carbon Dioxide Level 28 Anion Gap 4 L Blood Urea Nitrogen 9 Creatinine 0.59 Est Glomerular Filtrat Rate mL/min > 60 Glucose Level 106 Calcium Level 9.3 Medications Medication Current Medications Diphenhydramine HCl (Benadryl) 25 mg Q4H PRN IV .PRURITUS; Start 11/09/18 at 10:30 IV Flush (NS 3 ml) 3 ml PER PROTOCOL IV ; Start 11/09/18 at 12:00 Acetaminophen (Tylenol Tab) 1,000 mg Q8 PO Last administered on 11/12/18at 06:23; Admin Dose 1,000 MG; Start 11/09/18 at 14:00 Ondansetron HCl (Zofran Inj) 4 mg Q4H PRN IV NAUSEA/VOMITING Last administered on 11/11/18at 02:13; Admin Dose 4 MG; Start 11/10/18 at 12:00 Gabapentin (Neurontin) 300 mg QHS PO Last administered on 11/11/18at 20:40; Admin Dose 300 MG; Start 11/09/18 at 21:00 Pantoprazole (Protonix Tab) 40 mg DAILY@06 PO Last administered on 11/12/18at 06:23; Admin Dose 40 MG; Start 11/11/18 at 06:00 Docusate Sodium (Colace) 200 mg BID PO Last administered on 11/10/18at 20:39; Admin Dose 200 MG; Start 11/10/18 at 09:00; Stop 11/13/18 at 08:59 Simethicone (Mylicon) 80 mg TID PRN PO .GAS; Start 11/09/18 at 12:00 Senna/Docusate Sodium (Senokot-S) 2 tab BID PRN PO .CONSTIPATION; Start 11/09/18 at 12:00 Magnesium Hydroxide (Milk Of Mag) 30 ml HS PRN PO .CONSTIPATION; Start 11/09/18 at 12:00 Bisacodyl (Dulcolax Supp) 10 mg DAILY PRN HI .CONSTIPATION; Start 11/09/18 at 12:00 Sodium Biphosphate/ Sodium Phosphate (Fleet Enema) 133 ml DAILY PRN HI .CONSTIPATION; Start 11/09/18 at 12:00 Diphenhydramine HCl (Benadryl) 25 mg Q4H PRN IV .ITCHING; Start 11/09/18 at 12:00 Naloxone HCl (Narcan) 0.2 mg Q2M PRN IV .RESP RATE; Start 11/09/18 at 12:00 Bethanechol Chloride (Urecholine) 25 mg URINARY CATH D/C PRN PO UNABLE TO VOID; Start 11/09/18 at 12:00 Aspirin (Halfprin) 81 mg BID PO Last administered on 11/12/18at 08:22; Admin Dose 81 MG; Start 11/10/18 at 09:00 Docusate Sodium (Colace) 100 mg BID PO Last administered on 11/09/18at 20:46; Admin Dose 100 MG; Start 11/09/18 at 21:00 Metoclopramide HCl (Reglan) 10 mg Q6 IV Last administered on 11/12/18at 06:23; Admin Dose 10 MG; Start 11/10/18 at 10:00 Ketorolac Tromethamine (Toradol) 15 mg Q6H PRN IV PAIN; Start 11/10/18 at 21:30; Stop 11/13/18 at 21:29 Dextrose/Sodium Chloride 1,000 ml @ 75 mls/hr [id number] IV Last administered on 11/11/18at 12:21; Admin Dose 75 MLS/HR; Start 11/11/18 at 12:00 Tramadol HCl (Ultracet) 1 tab Q6H PRN PO MODERATE PAIN LEVEL 4-6 Last administered on 11/12/18at 08:22; Admin Dose 1 TAB; Start 11/11/18 at 16:30 MAURI BERNARD NP November 12, 2018 11:47
== END 2018-11-12 13:56 | disposition home health service (06) | DRG 470 ==
LOC: REC 05:28 → MS1 13:19
PROVIDERS: ADMIT Orthopaedic Surgery Adult Reconstructive Orthopaedic Surgery; ATTEND Orthopaedic Surgery Adult Reconstructive Orthopaedic Surgery
PROC: 0SRC0J9 Replacement of Right Knee Joint with Synthetic Substitute, Cemented, Open Approach (ICD-10-PCS; principal; 2018-11-09 07:30)
DX: M17.11 Unilateral primary osteoarthritis, right knee (principal); J95.89 Other postprocedural complications and disorders of respiratory system, not elsewhere classified; J98.11 Atelectasis; I10 Essential (primary) hypertension; F17.200 Nicotine dependence, unspecified, uncomplicated; E87.6 Hypokalemia; D64.9 Anemia, unspecified; F12.90 Cannabis use, unspecified, uncomplicated
CPT/HCPCS: 71045; 73560; 80048; 80061; 81001; 83735; 85025; 86850; 86900; 86901; 87081; 87086; 88304; 88311; 97116; 97162; 97165; 97530; 97535; C1713; C1776; J0131; J0171; J0690; J0696; J1100; J1170; J1885; J2250; J2274; J2370; J2405; J2765; J2795; J7042; J7120